=== PATIENT | male | born 1980 | race Caucasian/White ===

== ENCOUNTER 2016-03-27 20:58 | Emergency (ER) | payer OTHER ==
[~2016-03-27] VITALS: Ht 188 cm; Wt 89.8 kg
[2016-03-27] MEDS ORDERED: SULFAMETH/TRIMETH 800/160 MG 1 UDTAB TABLET PO ONE (23:00)
[2016-03-27] MEDS ORDERED: HYDROMORPHONE INJ 2 MG/ML DISP.SYRIN IM ONE (23:00)
[2016-03-27] MEDS ORDERED: SODIUM BICARBONATE 5 ML VIAL TP ONE (23:00)
[2016-03-27] MEDS ORDERED: LIDOCAINE 1%-EPI 1:100,000 20 ML VIAL TP ONE (23:00)
[2016-03-27] MEDS ORDERED: ONDANSETRON 4 MG TAB.RAPDIS SL ONE (23:00)
[2016-03-27] MEDS ORDERED: HYDROMORPHONE INJ 2 MG/ML DISP.SYRIN ONE (23:28)
[2016-03-27] MEDS ORDERED: ONDANSETRON 4 MG TAB.RAPDIS ONE (23:34)
[2016-03-28] MEDS ORDERED: SULFAMETH/TRIMETH 800/160 MG 1 UDTAB TABLET PO ONE (00:22)
[2016-03-28 03:48] VITALS: BP 118/72
== END 2016-03-28 01:00 | disposition home or self-care (01) ==
LOC: ER 20:59
DX: L02.212 Cutaneous abscess of back [any part, except buttock and flank] (principal); L72.0 Epidermal cyst
CPT/HCPCS: A4606; A6402; A6407; J1170; Q0162; Z7610

== ENCOUNTER 2016-03-29 18:49 | Emergency (ER) | payer MEDICAID, OTHER ==
[~2016-03-29] VITALS: Ht 188 cm; Wt 89.8 kg
[2016-03-29 19:12] VITALS: BP 122/71
[2016-03-29] MEDS ORDERED: LIDOCAINE 1%-EPI 1:100,000 20 ML VIAL TP ONE (20:30)
== END 2016-03-29 21:00 | disposition home or self-care (01) ==
LOC: ER 18:50
DX: L02.212 Cutaneous abscess of back [any part, except buttock and flank] (principal)
CPT/HCPCS: 10060; 99283; A4606; A6402; Z7610

== ENCOUNTER 2016-04-03 16:55 | Emergency (ER) | payer MEDICAID ==
[~2016-04-03] VITALS: Ht 182.9 cm; Wt 86.2 kg
[2016-04-03 17:04] VITALS: BP 126/71
== END 2016-04-03 17:26 | disposition home or self-care (01) ==
LOC: ER 16:56
DX: L02.212 Cutaneous abscess of back [any part, except buttock and flank] (principal)
CPT/HCPCS: 99283; A4606; Z7610

== ENCOUNTER 2016-05-04 18:38 | Emergency (ER) | payer MEDICAID ==
[~2016-05-04] VITALS: Ht 188 cm; Wt 86.2 kg
[2016-05-04 19:05] VITALS: BP 136/67
== END 2016-05-04 20:44 | disposition home or self-care (01) ==
LOC: ER 18:40
DX: L02.212 Cutaneous abscess of back [any part, except buttock and flank] (principal)
CPT/HCPCS: 10060; 99283; A4606; Z7610